=== PATIENT | male | born 1955 | race Caucasian/White ===

== ENCOUNTER 2018-05-22 20:05 | Observation (INO) | payer MEDICARE ==
[2018-05-22] MEDS ORDERED: Dexamethasone 10 MG/ML VIAL ONE ×2 (20:41)
--- NOTE | 2018-05-22 21:38 | PDOC.FPRHP ---
Addendum entered and electronically signed by Amparo Huang MD 05/23/18 06:13 : Wound cultures pending at OSH Original Note: - History of Present Illness Chief Complaint: Dysphagia, neck pain History of Present Illness: Mr Little is a 62yo male with pmh of COPD who presents as a transfer from [place] for dysphagia and neck pain. He was found to have retropharyngeal fluid/edema concerning for infection. Pain and dysphagia started Friday 05/19. It worsened Tuesday and this morning he realized he was not able to swallow at all. He denies any recent illness or URI symptoms including cough, rhinorrhea, sore throat, fever. He has had an EGD in 2016 by a sheet metal insulator in [place], at that time they found a esophageal stricture that was dilated. He has had some dysphagia since that time but reports this is the worst his symptoms have ever been. He has a long hx of tobacco abuse, quit after 150 pack yrs in 2011. He drank whiskey daily until 1983. ED Course: Clindamycin, Decadron 20mg CT: retropharyngeal abscess concerning for infection - Allergies/Adverse Reactions Allergies Allergy/AdvReac Type Severity Reaction Status Date / Time ACUMYCIN Allergy Uncoded 05/22/18 22:10 - Home Medications Medication Instructions Recorded Confirmed Type Fluticasone/Vilanterol [Breo 1 inh INH QAM 05/22/18 05/22/18 History Ellipta] - History PMHx: COPD PSHx: Cholecystectomy, inguinal hernia repair x2, L rotator cuff, tonsillectomy , hemorrhoidectomy, Knee surgery FHx: Father- Prostate cancer. HTN Social: Former smoker, smoked 50yrs (150pk years) quit in 2011. Prior hx of drinking whiskey daily, quit in 1983. No recent hx of drug use. - Review of Systems General: denies: fever/chills, weight/appetite/sleep changes, night sweats Eyes: denies: eye pain, vision changes ENT: reports: other (dysphagia, neck pain). denies: nasal congestion, rhinorrhea Respiratory: reports: shortness of breath (at baseline from COPD). denies: cough, congestion Cardiovascular: denies: chest pain, palpitation, edema Gastrointestinal: denies: nausea, vomiting, diarrhea, abdominal pain Genitourinary: denies: dysuria, other (hematuria) Skin: denies: rashes, lesions Musculoskeletal: reports: pain (neck). denies: swelling Neurological: denies: weakness - Vital signs BP: 152/84 HR: 78 RR: 20 Tmax: 98.4 Pox: 96% on RA Wt: 113kg - Physical Exam Constitutional: NAD, awake, alert and oriented, well developed HEENT: normocephalic and atraumatic, conjunctiva clear, grossly normal hearing, MMM, oropharynx clear, other (normal phonation, no hoarseness) Neck: supple, trachea midline, no bruits, other (bilateral lower anterior neck tenderness) Heart: RRR, no murmurs/rubs/gallops, pulses present (dorsalis pedis & radial), no edema Lungs: CTAB, no respiratory distress, good air movement, no wheezing Abdomen: soft, non-tender, bowel sounds present Musculoskeletal: normal structure, normal tone, ROM grossly normal Neurological: no focal deficit Skin: good turgor, capillary refill <2 seconds Heme/Lymphatic: no petechia Psychiatric: normal mood and affect, good judgment and insight, intact recent and remote memory FMR H&P: Results - Radiology Interpretation Other Status: report reviewed by me Additional comment: CT neck: Retropharyngeal fluid/edema concerning for infectious process. Chronic disease and thickening of the right maxillary sinus. Atherosclerosis involving both carotids. No drainable abscess FMR H&P: A/P - Problem List (1) Retropharyngeal abscess Current Visit: Yes Status: Acute Code(s): J39.0 - RETROPHARYNGEAL AND PARAPHARYNGEAL ABSCESS (2) COPD (chronic obstructive pulmonary disease) Current Visit: Yes Status: Chronic - Plan Mr Little is a 62yo male with pmh of COPD who presents as a transfer from [place] for concern for retropharyngeal abscess Retropharyngeal Abscess - CT neck: Retropharyngeal fluid/edema concerning for infectious process - ENT consulted from ED - s/p Clindamycin & Decadron 20mg in ED - Continue Clindamycin - Continue Decadron 10mg for 2 more doses - Admit to medical COPD - Pt on Breo at home - Will give Dulera as pt not able to bring in home inhaler Code Status: FULL DVT ppx: SCDs PCP: [facility]- [place] FMR H&P: Upper Level - Pertinent history 62 yo male here as a transfer from [place] for postpharyngeal cellulitis. 4 day history of sore throat, dysphagia. Today, unable to swallow today so he went to the ER. Went to ED in [place], CT showed retropharyngeal fluid/edema , worrisome for infectious process. Patient received clindamycin in [place] and dexamethasone in the [facility] ER. Denies fever, URI symptoms. Hx of smoking, drinking. EGD in 2016 with dilation. Intermittent dysphagia since then, but it has been acutely worsening. - Pertinent findings WBC: 11.7 Neut: 79.4% Cr: 0.9 GEN: NAD MOUTH: no erythema or pharyngeal exudates, no sign of abscess NECK: TTP b/l of neck lateral to cricoid process CARD: RRR PULM: diffuse end exp coarseness ABD: BSx4 137/78 HR: 85 TEMP: 98.4 95% on RA RR: 20 - Plan Date/Time: 05/22/182133 ICedric DO, have evaluated this patient and agree with findings/plan as outlined by digital intern resident. Pertinent changes/additions are listed here. #retropharyngeal infection, concerning for abscess -s/p clinda, will continue -s/p decadron, will continue -ENT consulted from ED, will see in the AM #COPD -stable, continue to monitor #elevated BP Addendum - Attending - Attending Attestation Date/Time: 05/23/18 0907 I personally evaluated the patient and discussed the management with Dr. Huang /Jeanne. I agree with the History, Examination, Assessment and Plan documented above with any addition or exceptions noted below. Patient here with worsening swallowing and pain and imaging consistent with retropharyngeal abscess. Continue Clinda and Decadron and await recommendations from ENT. He currently reports that symptoms are improved after first round of meds. Further mgmt per ENT recs.
[2018-05-22] MEDS ORDERED: Clindamycin/D5W 900 MG in Premix Bag 1 BAG IVPB SCH (23:59)
[2018-05-23 00:14] VITALS: BMI 31.9
[2018-05-23] MEDS ORDERED: Clindamycin/D5W 600 MG in Premix Bag 1 BAG IVPB SCH (00:30)
[2018-05-23] MEDS: Dexamethasone 10 MG/ML VIAL IM SCH ×2 (01:14→06:38)
--- NOTE | 2018-05-23 06:12 | PDOC.FM ---
- Subjective Subjective: Pt reports continued tenderness diffusely at neck. He denies subjective fevers/ chills. no complaints at this time. no cough, no sob, no cp no palpitations - Objective MAR Reviewed: Yes Vital Signs & Weight: Vital Signs (12 hours) Temp Pulse Resp BP Pulse Ox 05/23/18 04:30 97.5 F L 83 18 117/59 L 94 L 05/22/18 23:50 97.9 F 84 20 134/68 95 Weight Weight 113 kg Phys Exam - Physical Examination Constitutional: NAD HEENT: moist MMs, sclera anicteric Neck: no JVD, supple mild ttp diffusely, no palpable abscess or fluctuance. Respiratory: no wheezing, clear to auscultation bilateral Cardiovascular: RRR, no significant murmur Gastrointestinal: soft, non-tender Musculoskeletal: no edema, pulses present Neurological: normal sensation, moves all 4 limbs Lymphatic: no nodes Psychiatric: normal affect, A&O x 3 Skin: no rash, normal turgor Dx/Plan (1) Retropharyngeal abscess Code(s): J39.0 - RETROPHARYNGEAL AND PARAPHARYNGEAL ABSCESS Status: Acute (2) COPD (chronic obstructive pulmonary disease) Status: Chronic - Plan Plan: Mr Little is a 62yo male with pmh of COPD who presents as a transfer from [place] for concern for retropharyngeal abscess Retropharyngeal infection, concern for abscess A- CT neck: Retropharyngeal fluid/edema concerning for infectious process. WBC 11.7 and afebrile. ENT consulted from ED. s/p Clindamycin & Decadron 20mg in ED P- f/u on ENT recs, appreciated greatly - Continue Clindamycin - Continue Decadron 10mg for 2 more doses - f/u on BCx COPD A- controlled, Pt on Breo at home P- Will give Dulera as pt not able to bring in home inhaler Code Status: FULL DVT ppx: SCDs PCP: [facility]- [place] Addendum - Attending - Attending Attestation Date/Time: 05/23/18 2047 I personally evaluated the patient and discussed the management with Dr. Thomas. I agree with the History, Examination, Assessment and Plan documented above with any addition or exceptions noted below.
[2018-05-23] MEDS: Mometasone/Formoterol 120 PUFF INHALER INH SCH ×2 (06:26→19:04)
[2018-05-23] MEDS: Clindamycin/D5W 600 MG in Premix Bag 1 BAG IVPB SCH ×4 (06:38→23:51)
[2018-05-24] MEDS: Clindamycin/D5W 600 MG in Premix Bag 1 BAG IVPB SCH ×3 (06:19→21:39)
[2018-05-24 06:26] LABS: #Lymphocytes 1.6 thou/uL (1.20-3.40); #Monocytes 1.3 thou/uL (0.11-0.59); %Eosinophils 0.2 % (0.0-10.0); %Lymphocytes 9.1 % (21.0-51.0); %Neutrophils 83.7 % (42.0-75.0); Mean Corpuscular HGB CONC 32.3 g/dL (32.0-36.0); Mean Corpuscular Hemoglobin 29.4 pg (27.0-31.0); Mean Corpuscular Volume 90.9 fL (78.0-98.0); Platelet Count 314 thou/uL (130-400); RBC Distribution Width 12.2 % (11.5-14.5); Red Blood Cell (RBC) Count 4.43 mill/uL (4.70-6.10); White Blood Cell (WBC) Count 17.9 thou/uL (4.8-10.8)
[2018-05-24 07:14] LABS: Anion Gap 13 mmol/L (10-20); BUN (Urea Nitrogen) 33 mg/dL (8.4-25.7); Calc. Creatinine Clearance 134 mL/min (70-130); Carbon Dioxide 22 mmol/L (23-31); Chloride 106 mmol/L (98-107); Estimated GFR-MDRD 86; Glucose 113 mg/dL (80-115); Potassium 4.2 mmol/L (3.5-5.1); Sodium 137 mmol/L (136-145)
[2018-05-24 07:15] LABS: Calcium 9.3 mg/dL (7.8-10.44)
[2018-05-24] MEDS: Mometasone/Formoterol 120 PUFF INHALER INH SCH ×2 (07:36→18:19)
--- NOTE | 2018-05-24 08:52 | PDOC.FM ---
- Subjective Subjective: Pt reports feeling improved with decreased tenderness in neck. no fever/chills, no nausea/vomiting - Objective MAR Reviewed: Yes Vital Signs & Weight: Vital Signs (12 hours) Temp Pulse Resp BP Pulse Ox 05/24/18 08:00 97.2 F L 80 18 129/62 96 05/24/18 04:00 97.4 F L 81 18 106/53 L 94 L Weight Weight 113 kg I&O: 05/23/18 05/24/18 05/25/18 06:59 06:59 06:59 Intake Total 1096 Balance 1096 Result Diagrams: 05/24/18 06:05 05/24/18 06:05 Phys Exam - Physical Examination Constitutional: NAD HEENT: moist MMs, sclera anicteric, oral pharynx no lesions Neck: no nodes, supple mild edema and diffuse ttp Respiratory: no wheezing, clear to auscultation bilateral Cardiovascular: RRR, no significant murmur Gastrointestinal: soft, non-tender Musculoskeletal: no edema, pulses present Neurological: normal sensation, moves all 4 limbs Lymphatic: no nodes Psychiatric: normal affect Skin: no rash, normal turgor Dx/Plan (1) Retropharyngeal abscess Code(s): J39.0 - RETROPHARYNGEAL AND PARAPHARYNGEAL ABSCESS Status: Acute (2) COPD (chronic obstructive pulmonary disease) Status: Chronic - Plan Plan: Mr Little is a 62yo male with pmh of COPD who presents as a transfer from [place] for concern for retropharyngeal abscess Retropharyngeal infection, concern for abscess A- CT neck: Retropharyngeal fluid/edema concerning for infectious process. WBC 11.7 and afebrile. ENT consulted from ED. s/p Clindamycin & Decadron 20mg in ED. ENT is consulted. P- f/u on ENT recs, appreciated greatly - Continue Clindamycin IV with plan to switch to PO today or tomorrow per ENT recs - Continue Decadron 10mg for 1 more doses - f/u on BCx COPD A- controlled, Pt on Breo at home P- Will give Dulera as pt not able to bring in home inhaler Code Status: FULL DVT ppx: SCDs PCP: VANESSA [place] Addendum - Attending - Attending Attestation Date/Time: 05/24/18902 I personally evaluated the patient and discussed the management with Dr. Thomas. I agree with the History, Examination, Assessment and Plan documented above with any addition or exceptions noted below. Patient improved from yesterday and reports he is able to swallow solid foods. ENT evaluated yesterday with flexible laryngoscopy it sounds like and recommended continue the abx and steroids. Will re-eval today. If no plans for I /D, he will likely be stable for discharge later today as he is able to tolerate normal diet with outpatient follow up with ENT.
[2018-05-24] MEDS ORDERED: Dexamethasone 10 MG/ML VIAL IM SCH (11:30)
[2018-05-25] MEDS: Clindamycin/D5W 600 MG in Premix Bag 1 BAG IVPB SCH (05:25)
[2018-05-25] MEDS: Mometasone/Formoterol 120 PUFF INHALER INH SCH (07:13)
--- NOTE | 2018-05-25 09:06 | PDOC.FM ---
- Subjective Subjective: Pt reports pain has improved and good rest overnight. no fever chills, no sob or cough. No complaints at this time. - Objective MAR Reviewed: Yes Vital Signs & Weight: Vital Signs (12 hours) Temp Pulse Resp BP Pulse Ox 05/25/18 07:46 97.4 F L 70 20 141/63 H 97 05/25/18 04:12 97.5 F L 71 18 122/60 97 05/24/18 23:23 97.5 F L 86 14 110/54 L 96 Weight Weight 110.54 kg I&O: 05/24/18 05/25/18 05/26/18 06:59 06:59 06:59 Intake Total 1096 1380 Output Total 700 Balance 1096 680 Result Diagrams: 05/24/18 06:05 05/24/18 06:05 Phys Exam - Physical Examination Constitutional: NAD HEENT: moist MMs, sclera anicteric mild diffuse TTP, improved Respiratory: no wheezing, clear to auscultation bilateral Cardiovascular: RRR, no significant murmur Gastrointestinal: soft, non-tender Musculoskeletal: no edema, pulses present Neurological: normal sensation, moves all 4 limbs Lymphatic: no nodes Psychiatric: normal affect Skin: no rash, normal turgor Dx/Plan (1) Retropharyngeal abscess Code(s): J39.0 - RETROPHARYNGEAL AND PARAPHARYNGEAL ABSCESS Status: Acute (2) COPD (chronic obstructive pulmonary disease) Status: Chronic - Plan Plan: Mr Little is a 62yo male with pmh of COPD who presents as a transfer from [place] for concern for retropharyngeal abscess Retropharyngeal infection, concern for abscess A- CT neck: Retropharyngeal fluid/edema concerning for infectious process. WBC 11.7 and afebrile. ENT consulted from ED. s/p Clindamycin & Decadron 20mg in ED. ENT is consulted and recommends DC today with augmenting P- DC today per ENT recs with Augmentin COPD A- controlled, Pt on Breo at home P- Will give Dulera as pt not able to bring in home inhaler. Continue Breo on discharge Code Status: FULL DVT ppx: SCDs PCP: VANESSA [place] Addendum - Attending - Attending Attestation Date/Time: 05/25/18 1118 I personally evaluated the patient and discussed the management with Dr. Thomas. I agree with the History, Examination, Assessment and Plan documented above with any addition or exceptions noted below. Patient doing well, able to swallow without difficulty. ENT has cleared for discharge and so will be discharged today with PO abx and outpatient ENT follow up.
[2018-05-25 12:24] VITALS: BP 165/78; TEMP 97.2
--- NOTE | 2018-05-26 12:04 | CON ---
DATE OF CONSULTATION: 05/23/2018 SUBJECTIVE: Mr. Little was a transfer from [place] for a suspected possible retropharyngeal abscess. He was admitted to [facility] and started on IV clindamycin and IV steroids. Today, the patient states he is doing much better. He is swallowing better. He denies any fever or chills. He is still n.p.o. as awaiting for ENT consult. OBJECTIVE: The patient is well-developed, well-nourished. He is in no acute distress. He is swallowing without difficulty. Voice is mildly hoarse though he has a very significant smoking history. Flexscope was performed, entire nasopharyngeal area was opened. There is no evidence of any abscess in the epiglottal or tracheal region, mild redness, but no evidence of drainage or swelling. The patient able to swallow and phonate without difficulty. ASSESSMENT: 1. Retropharyngeal abscess, suspected. 2. Pharyngitis. PLAN: 1. Continue IV antibiotics for 24 to 48 hours and then discharge with home antibiotics for 10 days either clindamycin or Augmentin would be acceptable. 2. CT scan was reviewed with Dr. Zazueta via [facility], he had no concerns for retropharyngeal abscess that needed any kind of surgical intervention and per his request n.p.o. was removed allowing patient to eat. Job ID: [id number]
--- NOTE | 2018-05-26 12:04 | DIS ---
DATE OF ADMISSION: 05/22/2018 DATE OF DISCHARGE: 05/25/2018 RESIDENT: Carlos Thomas MD CONSULT: ENT, Rock Rice PA-C PROCEDURES: CT scan at outside facility showed concern for retropharyngeal infection. PRIMARY DIAGNOSIS: Retropharyngeal infection. SECONDARY DIAGNOSIS: Chronic obstructive pulmonary disease. DISCHARGE MEDICATIONS: 1. Breo Ellipta 1 inhale q.a.m. 2. Augmentin 875 mg 1 tablet p.o. q.12 hours 10 days. DISCONTINUED MEDICATIONS: None. HISTORY OF PRESENT ILLNESS AND HOSPITAL COURSE: This is a 63-year-old male with medical history of COPD, who presented as a transfer from the [place] ER with complaints of dysphagia and throat pain. On CT, the patient was found to have concern for retropharyngeal infection and was admitted to our service with ENT consultation from the ER. Recommendations were made to start the patient on IV clindamycin, which he received during his hospitalization. The patient showed clinical improvement with resolution of neck pain and improvement of edema. Additionally, ENT recommended as the patient improved, that he be discharged with 10 days of Augmentin and with close followup at their office in the outpatient setting. DISPOSITION: Stable. DISCHARGE INSTRUCTIONS: LOCATION: Home. DIET: Soft, advance as tolerated. ACTIVITY: As tolerated. FOLLOWUP: Follow up with Dr. Rk Oseguera in 1 day, same day of discharge, the patient had appointment sent and with primary care provider out of town in 14 days. Job ID: [id number]
== END 2018-05-25 12:24 | disposition home or self-care (01) ==
LOC: ERS 20:05 → 2SW 22:00
PROVIDERS: ADMIT Emergency Medicine; ATTEND Emergency Medicine
DX: J02.9 Acute pharyngitis, unspecified (principal); M54.2 Cervicalgia; J44.9 Chronic obstructive pulmonary disease, unspecified; Z87.891 Personal history of nicotine dependence; Z79.51 Long term (current) use of inhaled steroids; Z88.1 Allergy status to other antibiotic agents
CPT/HCPCS: 80048; 85025; 94640; 94664; 96365; 96366 ×3; 96372 ×2; 96376 ×2; 99284; G0378 ×3; 36415; J1100; J3490

== ENCOUNTER 2018-06-05 14:10 | Emergency (ER) | payer MEDICARE ==
[~2018-06-05 14:10] MED LIST: ISOVUE-370 76%-LOCM 1 ML ONE
[2018-06-05 15:49] LABS: #Eosinphils 0.3 thou/uL (0.0-0.7); #Monocytes 1.3 thou/uL (0.11-0.59); #Neutrophils 12.7 thou/uL (1.40-6.50); %Eosinophils 1.6 % (0.0-10.0); %Lymphocytes 12.1 % (21.0-51.0); %Monocytes 7.8 % (0.0-10.0); %Neutrophils 78.5 % (42.0-75.0); Hemoglobin 13.2 g/dL (14.0-18.0); Mean Corpuscular HGB CONC 32.2 g/dL (32.0-36.0); Mean Corpuscular Hemoglobin 28.6 pg (27.0-31.0); Mean Corpuscular Volume 88.8 fL (78.0-98.0); Mean Platelet Volume 8.8 fL (7.4-10.4); Platelet Count 267 thou/uL (130-400); RBC Distribution Width 12.5 % (11.5-14.5); Red Blood Cell (RBC) Count 4.62 mill/uL (4.70-6.10); White Blood Cell (WBC) Count 16.2 thou/uL (4.8-10.8)
[2018-06-05 16:11] LABS: ALT (SGPT) 14 U/L (8-55); AST (SGOT) 11 U/L (5-34); Alkaline Phosphatase 69 U/L (40-150); Anion Gap 12 mmol/L (10-20); BUN (Urea Nitrogen) 11 mg/dL (8.4-25.7); Bilirubin, Total 0.9 mg/dL (0.2-1.2); Calc. Creatinine Clearance 0 mL/min (70-130); Calcium 9.7 mg/dL (7.8-10.44); Carbon Dioxide 27 mmol/L (23-31); Chloride 106 mmol/L (98-107); Estimated GFR-MDRD 88; Glucose 105 mg/dL (80-115); Potassium 5.2 mmol/L (3.5-5.1); Sodium 140 mmol/L (136-145)
--- NOTE | 2018-06-05 16:52 | CT ---
FExam: Pre and postcontrast soft tissue neck CT HISTORY: Throat pain. Neck pain. Evaluate for retropharyngeal abscess. Comparison none FINDINGS: Visualized brain and orbits are unremarkable Adequate aeration of the mastoid air cells. There is right maxillary sinus disease. Nasopharynx is unremarkable. Midline fatty [place] of the tongue is preserved. No obvious masses in t he oral cavity. Epiglottis is normal caliber. Preepiglottic fat is preserved. The supraglottic, glott ic and subglottic larynx are unremarkable There is no retropharyngeal or prevertebral soft tissue swelling, edema or abscess. There is an enlar ged right retropharyngeal lymph node measuring 0.9 x 1.2 cm. No additional evidence of lymphadenopath y Grossly the great vessels of the neck are patent. There are vein degrees of central canal stenosis and neural foraminal narrowing on the basis of degen erative change. Cervical spine vertebral body heights are maintained. No fracture. Cervical fusion at C5-C6 without. Hardware lucency. Appropriate attenuation of the parotid and submandibular glands. Unremarkable thyroid gland Opacification of the left upper lobe may be due to chronic change. No edema or infiltrate cannot be e xcluded. Mild emphysematous changes in the visualized lung apices. Mild thickening of the upper thoracic esophagus. IMPRESSION: 1. No CT evidence of a retropharyngeal or prevertebral abscess, significant fluid collection. 2. Enlargement right retropharyngeal lymph node, likely reactive. Additional lymphadenopathy is not a ppreciated. 3. Left upper lobe opacity as described above. 4. Mild thickening the upper thoracic esophagus.
[2018-06-05] MEDS ORDERED: cefTRIAXone\\ROCEPHIN 2 GM VIAL ONE (19:39)
[2018-06-05] MEDS ORDERED: Dexamethasone 10 MG/ML VIAL ONE (19:39)
== END 2018-06-05 21:10 | disposition home or self-care (01) ==
LOC: ERS 14:10
DX: R07.0 Pain in throat (principal); J44.9 Chronic obstructive pulmonary disease, unspecified; F41.9 Anxiety disorder, unspecified; Z87.891 Personal history of nicotine dependence
CPT/HCPCS: 36415; 70492; 80053; 83605; 84484; 85025; 87040; 93005; 96361; 96365; 96375; J0696; J1100; Q9966

== ENCOUNTER 2018-06-16 13:17 | Outpatient (CLI) | payer MEDICARE ==
--- NOTE | 2018-06-16 14:16 | RAD ---
Barium swallow: HISTORY: Dysphasia FINDINGS: Swallowing function appears to be within normal limits. Anterior cervical fusion changes are noted at C5-C6. Unremarkable appearing cervical esophagus. No stricture or ulcer or mass or other significant malalignment noted involving the esophagus. No evidence for identifiable reflux. IMPRESSION: Unremarkable barium swallow.
== END 2018-06-16 13:18 | disposition home or self-care (01) ==
LOC: RAD 13:17
PROVIDERS: ATTEND Otolaryngology Plastic Surgery within the Head & Neck
DX: R13.10 Dysphagia, unspecified (principal)
CPT/HCPCS: 74220